=== PATIENT | female | born 1940 | race Caucasian/White ===

== ENCOUNTER 2016-12-26 09:58 | Day surgery (SDC) | payer MEDICARE ==
[~2016-12-26] VITALS: Ht 162.6 cm; Wt 108.2 kg
[~2016-12-26 09:58] MED LIST: DIOV160T6 PO; FAMO20 PO; GABA100C4 PO; LEVO.15 PO; ROPI2TAB23 PO; TRAZ50TA4 PO; ULTR50TA PO
[2016-12-26] MEDS ORDERED: SODIUM CHLOR 0.9% 1000 ML IV SCH (10:00)
[2016-12-26 10:10] VITALS: PULSE 68; RESP 20; TEMP 98.2; O2SAT 94
[2016-12-26] MEDS ORDERED: VALS1TAB65 PO (10:20)
[2016-12-26] MEDS ORDERED: LEVO125T4 PO (10:20)
[2016-12-26] MEDS ORDERED: TIZA4CAP3 PO (10:25)
[2016-12-26] MEDS ORDERED: FAMO20TA2 PO (10:25)
[2016-12-26] MEDS ORDERED: ROPI1TAB PO (10:25)
[2016-12-26] MEDS ORDERED: OXYC1TAB63 PO (10:25)
[2016-12-26] MEDS ORDERED: MIDAZOLAM HCL 2 MG/2 ML VIAL ONE (12:09)
[2016-12-26] MEDS ORDERED: fentaNYL CITRATE 250 MCG/5 ML AMP ONE (12:10)
--- NOTE | 2016-12-26 12:29 | RADRPT ---
EXAM DATE/TIME: 12/26/2016 11:32 [facility] COMPARISON: No previous studies available for comparison. INDICATIONS : Patient presents with abnormal CT and breast cancer history in need of peripheral intravenous access for bone biopsy procedure. MEDICAL HISTORY : CHF GERD HTN Hypothyroid SURGICAL HISTORY : Bilat cataracts Shoulder fix ENCOUNTER: Initial ACUITY: 1 week PAIN SCORE: 9/10 LOCATION: Right Leg IMAGE SERIES: 0 ACCESS: Right basilic vein DEVICE(S): 1.) 3/4 [place] Dilator PROCEDURE : 1. Ultrasound guided venous access. The risks, benefits and alternatives to the procedure were explained and verbal and written consent w as obtained. The site was prepped in sterile fashion. Full sterile technique was used, including ca p, mask, sterile gloves and gown and a large sterile sheet. Hand hygiene and 2% chlorhexidine and/or betadine/alcohol prep was utilized per protocol for cutaneous antisepsis. The skin and subcutaneous tissues were infiltrated with local anesthetic solution. With ultrasound guidance the prescribed vein was punctured for venous access. A 4 [place] dilator was placed and was flushed and locked with heparin. The patient tolerated procedure well and there were n o complications. CONCLUSION: Uncomplicated ultrasound guided venous access. Qamar Martinez MD on December 26, 2016 at 12:27 Board Certified Radiologist. This report was verified electronically.
[2016-12-26 12:50] VITALS: BP 178/92; PULSE 85; RESP 20; TEMP 98; O2SAT 93
[2016-12-26 13:05] VITALS: PULSE 82; RESP 20; O2SAT 96
[2016-12-26] MEDS ORDERED: LIDOCAINE 1%/EPINEPHrine 1:100,000 SOLN 20 ML VIAL ONE (13:09)
[2016-12-26 13:35] VITALS: BP 179/86; PULSE 77; RESP 18; O2SAT 94
[2016-12-26 14:05] VITALS: BP_DIAS 94; PULSE 58; RESP 20; O2SAT 95
[2016-12-26 14:35] VITALS: PULSE 85; RESP 20; O2SAT 93
--- NOTE | 2016-12-26 14:59 | RADRPT ---
EXAM DATE/TIME: 12/26/2016 12:27 [facility] COMPARISON: No previous studies available for comparison. INDICATIONS : Right iliac bone lesion. SEDATION TIME: 30 minutes BIOPSY SITE: Right MEDICATION(S): 1.) 4 mg midazolam (Versed) IV 2.) 150 mcg fentanyl (Sublimaze) IV DEVICE(S): 1.) 11 gauge Bone biopsy needle MEDICAL HISTORY : Carcinoma, breast. Cardiovascular disease. SURGICAL HISTORY : Hysterectomy. Appendectomy. Cholecystectomy. ENCOUNTER: Initial ACUITY: 1 day PAIN SCORE: 0/10 LOCATION: Right A total of one core specimen(s) were obtained and sent to the laboratory for pathologic evaluation. PROCEDURE: 1. CT guided bone deep biopsy. 2. Conscious sedation with continuous EKG and oximetry monitoring. 3. EKG and oximetry remained stable throughout the procedure. Prior to the procedure informed consent was obtained. Any appropriate prior imaging studies were rev iewed. Using automated exposure control and adjustment of the mA and/or kV according to patient size, radiat ion dose was kept as low as reasonably achievable to obtain optimal diagnostic quality images. DICOM format image data is available electronically for review and comparison. The site was prepped in a sterile fashion. Full sterile technique was used, including cap, mask, lewis rile gloves and gown and a large sterile sheet. Hand hygiene and 2% chlorhexidine and/or betadine/al cohol prep was utilized per protocol for cutaneous antisepsis. The skin and subcutaneous tissues wer e infiltrated with local anesthetic solution. Under CT guidance an 11 gauge core of bone was obtained on the PET positive lesion with sclerosis rig ht posterior superior iliac spine. Follow-up CT scan reveals no hemorrhage. The patient tolerated the procedure well and there were no complications. The patient was returned to the Radiology Outpatient Unit in stable condition. CONCLUSION: Uncomplicated CT guided biopsy. Iftikhar Alvarez MD FACR on December 26, 2016 at 14:56 Board Certified Radiologist. This report was verified electronically.
== END 2016-12-26 14:55 | disposition home or self-care (01) ==
LOC: HRAD 09:58 → HRIP 10:00 → HRAD 14:55
PROVIDERS: ATTEND Internal Medicine Hematology
DX: C50.212 Malignant neoplasm of upper-inner quadrant of left female breast (principal); I25.10 Atherosclerotic heart disease of native coronary artery without angina pectoris; I50.9 Heart failure, unspecified; I11.0 Hypertensive heart disease with heart failure; K21.9 Gastro-esophageal reflux disease without esophagitis; E03.9 Hypothyroidism, unspecified
CPT/HCPCS: 20225; 36410; 76937; 77012; 88307; 88311; 88333; 88341; 88342; 99152; C1830; J2250; J3010; 88305

== ENCOUNTER 2017-01-04 10:17 | Day surgery (SDC) | payer MEDICARE ==
[~2017-01-04] VITALS: Ht 162.6 cm; Wt 104.5 kg
[~2017-01-04 10:17] MED LIST changes: -DIOV160T6 PO; -FAMO20 PO; +FAMO20TA2 PO; -GABA100C4 PO; -LEVO.15 PO; +LEVO125T4 PO; +OXYC1TAB63 PO; +ROPI1TAB PO; -ROPI2TAB23 PO; +TIZA4CAP3 PO; -TRAZ50TA4 PO; -ULTR50TA PO; +VALS1TAB65 PO
[2017-01-04 10:35] VITALS: BP 233/115; PULSE 70; RESP 18; TEMP 98.4; O2SAT 94
[2017-01-04] MEDS ORDERED: SODIUM CHLOR 0.9% 1000 ML IV SCH (11:00)
[2017-01-04] MEDS ORDERED: MIDAZOLAM HCL 2 MG/2 ML VIAL ONE (11:30)
[2017-01-04] MEDS ORDERED: fentaNYL CITRATE 250 MCG/5 ML AMP ONE (11:30)
[2017-01-04] MEDS ORDERED: LIDOCAINE 1%/EPINEPHrine 1:100,000 SOLN 20 ML VIAL ONE (11:45)
--- NOTE | 2017-01-04 12:30 | PD.RAD ---
Post CT Procedure Prog Note Pre Procedure Diagnosis: (1) Bone lesion (2) Breast cancer Post Procedure Diagnosis: (1) Bone lesion (2) Breast cancer Procedure Date: Jan 04, 2017 Supervising Radiologist: Qamar Gallegos Estimated blood loss: minimal Anesthesia: Conscious Sedation Plan of Activity Patient to Unit: [facility] Patient Condition: Good See PACS Report for procedural detail/treatment Biopsy Imaging Guidance: CT Side: Right Biopsy Procedure: Other Site: L5 pedicle sclerotic lesion Specimen: Core Biopsy Findings: very hard sclerotic lesion Plan to [facility] then discharge in 2 hours. Qamar Gallegos MD Jan 04, 2017 12:30
[2017-01-04] MEDS ORDERED: oxyCODONE/ACETAMINOPHEN 5 MG/325 MG TAB PO PRN (12:45)
[2017-01-04 12:50] VITALS: BP 214/82; PULSE 61; RESP 18; O2SAT 95
[2017-01-04 13:05] VITALS: BP 225/84; PULSE 58; RESP 18; O2SAT 94
[2017-01-04 13:35] VITALS: PULSE 62; RESP 16; O2SAT 94
[2017-01-04 14:05] VITALS: PULSE 64; RESP 18; O2SAT 95
--- NOTE | 2017-01-04 14:46 | RADRPT ---
EXAM DATE/TIME: 01/04/2017 11:30 [facility] COMPARISON: No previous studies available for comparison. INDICATIONS : Patient presents with abnormal CT and breast cancer history in need of peripheral intravenous access for bone biopsy procedure. MEDICAL HISTORY : HTN Hypothyroid SURGICAL HISTORY : Bilat cataracts Shoulder fix ENCOUNTER: Subsequent ACUITY: >1 year PAIN SCORE: 0/10 IMAGE SERIES: ACCESS: Right basilic vein DEVICE(S): 1.) 3/4 [place] Island[place] Dilator PROCEDURE : 1. Ultrasound guided venous access. The risks, benefits and alternatives to the procedure were explained and verbal and written consent w as obtained. The site was prepped in sterile fashion. Full sterile technique was used, including ca p, mask, sterile gloves and gown and a large sterile sheet. Hand hygiene and 2% chlorhexidine and/or betadine/alcohol prep was utilized per protocol for cutaneous antisepsis. The skin and subcutaneous tissues were infiltrated with local anesthetic solution. With ultrasound guidance the prescribed vein was punctured for venous access. A 4 [place] Island[place] dilator was placed and was flushed and locked with heparin. The patient tolerated procedure well and there were n o complications. CONCLUSION: Uncomplicated ultrasound guided venous access. Raphael Cummins Jr., MD on January 04, 2017 at 14:44 Board Certified Radiologist. This report was verified electronically.
--- NOTE | 2017-01-04 16:22 | RADRPT ---
EXAM DATE/TIME: 01/04/2017 12:07 [facility] COMPARISON: CT NEEDLE BIOPSY BONE DEEP, December 26, 2016, 12:27. INDICATIONS : L5 bone lesion. SEDATION TIME: 30 minutes BIOPSY SITE: Left L5 MEDICATION(S): 1.) 4 mg midazolam (Versed) IV 2.) 200 mcg fentanyl (Sublimaze) IV DEVICE(S): 1.) 11 gauge Bone marrow biopsy needle MEDICAL HISTORY : Carcinoma, breast. SURGICAL HISTORY : Appendectomy. Cholecystectomy. Hysterectomy. ENCOUNTER: Initial ACUITY: 1 day PAIN SCORE: 0/10 LOCATION: back A total of one core specimen(s) were obtained and sent to the laboratory for pathologic evaluation. PROCEDURE: 1. CT guided bone deep biopsy. 2. Conscious sedation with continuous EKG and oximetry monitoring. Prior to the procedure informed consent was obtained. Any appropriate prior imaging studies were rev iewed. Using automated exposure control and adjustment of the mA and/or kV according to patient size, radiat ion dose was kept as low as reasonably achievable to obtain optimal diagnostic quality images. DICOM format image data is available electronically for review and comparison. The site was prepped in a sterile fashion. Full sterile technique was used, including cap, mask, lewis rile gloves and gown and a large sterile sheet. Hand hygiene and 2% chlorhexidine and/or betadine/al cohol prep was utilized per protocol for cutaneous antisepsis. The skin and subcutaneous tissues wer e infiltrated with local anesthetic solution. With CT guidance the sclerotic lesion in the right pedicle region of L5 was localized. Biopsy was per formed using the prescribed needle as above. Adequate hemostasis was obtained with compression at th e puncture site. Follow-up CT scan reveals no hemorrhage or acute abnormality. The patient tolerated the procedure well and there were no complications. The patient was returned to the Radiology Outpatient Unit in stable condition. CONCLUSION: Uncomplicated CT guided biopsy of the sclerotic lesion in the right L5 pedicle. Qamar Gallegos MD on January 04, 2017 at 16:19 Board Certified Radiologist. This report was verified electronically.
== END 2017-01-04 14:55 | disposition home or self-care (01) ==
LOC: HRAD 10:17 → HRIP 10:21 → HRAD 14:55
PROVIDERS: ATTEND Internal Medicine Hematology
DX: C50.212 Malignant neoplasm of upper-inner quadrant of left female breast (principal); M89.9 Disorder of bone, unspecified; I10 Essential (primary) hypertension; E03.9 Hypothyroidism, unspecified
CPT/HCPCS: 20225; 36410; 77012; 88307; 88311; 99152; 99153; C1830; J2250; J3010; J7030